=== PATIENT | male | born 1945 | race Caucasian/White ===

== ENCOUNTER → 2017-05-13 | Outpatient (CLI) | payer BC | END | disposition home or self-care (01) | LOC: CVU 09:39 | PROVIDERS: ATTEND Physician Assistant Medical | DX: I51.7 Cardiomegaly (principal); I34.1 Nonrheumatic mitral (valve) prolapse; I34.0 Nonrheumatic mitral (valve) insufficiency | CPT/HCPCS: 93306 ==

== ENCOUNTER → 2019-01-26 | Outpatient (CLI) | payer BC ==
[~2019-01-26] MED LIST: ACET1TAB64 PO; APIX5TAB PO; FLUT15.88 INH; METO25TA35 PO; MULT-658 PO; Vitamin C PO; Vitamin D3 PO; lecithin PO
== END | disposition home or self-care (01) ==
LOC: CVU 12:10
PROVIDERS: ATTEND Nurse Practitioner Family
DX: I07.1 Rheumatic tricuspid insufficiency (principal); I48.91 Unspecified atrial fibrillation
CPT/HCPCS: 93306

== ENCOUNTER 2019-02-01 11:59 | Day surgery (SDC) | payer BC ==
[~2019-02-01] VITALS: Ht 195.6 cm; Wt 124.5 kg
[2019-02-01 12:25] VITALS: BP 147/92
== END 2019-02-01 14:57 | disposition home or self-care (01) ==
LOC: CACL 11:59
PROVIDERS: ATTEND Internal Medicine Cardiovascular Disease
DX: I48.91 Unspecified atrial fibrillation (principal); I48.92 Unspecified atrial flutter; M51.34 Other intervertebral disc degeneration, thoracic region; M51.36 Other intervertebral disc degeneration, lumbar region; I34.0 Nonrheumatic mitral (valve) insufficiency; E78.5 Hyperlipidemia, unspecified
CPT/HCPCS: 36415; 80048; 92960; J2704

== ENCOUNTER → 2019-07-18 | Outpatient (CLI) | payer BC ==
[~2019-07-18] MED LIST changes: +FLUT15.845 INH; -FLUT15.88 INH
== END | disposition home or self-care (01) ==
LOC: CVU 14:24
PROVIDERS: ATTEND Internal Medicine Cardiovascular Disease
DX: I08.8 Other rheumatic multiple valve diseases (principal)
CPT/HCPCS: 93306